=== PATIENT | male | born 1990 | race Caucasian/White ===

== ENCOUNTER → 2018-04-26 | Outpatient (REF) | payer OTHER ==
[2018-04-26 19:05] LABS: HEMATOCRIT 48.5 % (42.0-52.0); HEMOGLOBIN 16.5 g/dl (13.5-17.5); MEAN CORPUSCULAR HEMOGLOBIN 29.8 pg (27.0-33.0); MEAN CORPUSCULAR VOLUME 87.7 fl (80.0-96.0); PLATELET COUNT, AUTOMATED 239 10^3/uL (150-450); RED BLOOD COUNT 5.53 10^6/uL (4.30-6.10); WHITE BLOOD COUNT 5.3 10^3/uL (4.0-10.0)
[2018-04-26 19:26] LABS: ALBUMIN 4.4 GM/DL (3.2-5.2); ALT/SGPT 32 U/L (12-78); BILIRUBIN,TOTAL 0.5 MG/DL (0.2-1.0); BLOOD UREA NITROGEN 18 MG/DL (7-18); CALCIUM LEVEL 9.2 MG/DL (8.5-10.1); CARBON DIOXIDE LEVEL 32 MEQ/L (21-32); CHLORIDE LEVEL 103 MEQ/L (98-107); CREATININE FOR GFR 1.14 MG/DL (0.70-1.30); FREE T4 0.96 NG/DL (0.76-1.46); GLOMERULAR FILTRATION RATE > 60.0 (>60); GLUCOSE, FASTING 92 MG/DL (70-100); SODIUM LEVEL 141 MEQ/L (136-145); TOTAL PROTEIN 7.5 GM/DL (6.4-8.2)
== END ==
LOC: M SFHCPLAZ 13:49
PROVIDERS: ATTEND Physician Assistant
DX: Z00.00 Encounter for general adult medical examination without abnormal findings (principal)

== ENCOUNTER → 2018-04-27 | Outpatient (REF) | payer OTHER | LOC: M SFHCPLAZ 14:32 | PROVIDERS: ATTEND Family Medicine | DX: H53.2 Diplopia (principal) ==

== ENCOUNTER 2018-05-05 05:55 | Day surgery (SDC) | payer OTHER ==
[~2018-05-05] VITALS: Ht 180.3 cm; Wt 83.9 kg
[2018-05-05] MEDS ORDERED: LR 1,000 ML IV ONE (06:00)
[2018-05-05] MEDS ORDERED: ERYTHROMYCIN OPHTH OINT As Ordered ONE (06:52)
[2018-05-05] MEDS ORDERED: PHENYLEPHRINE 2.5% OPHTH SOL 2ML As Ordered ONE (06:52)
[2018-05-05] MEDS ORDERED: LIDOCAINE 3.5 % 1ML OPHTH TOPICAL GEL OU ONE (07:00)
[2018-05-05] MEDS ORDERED: PROPOFOL 200 MG/20 ML VIAL As Ordered ONE (07:09)
[2018-05-05] MEDS ORDERED: MIDAZOLAM INJ 2 MG/2 ML VIAL (J2250) As Ordered ONE (07:09)
[2018-05-05] MEDS ORDERED: LIDOCAINE 2% INJ 100 MG/5 ML SDV (FOR ANES.) As Ordered ONE (07:09)
[2018-05-05] MEDS ORDERED: fentaNYL 100 MCG/2 ML INJECTION (J3010) As Ordered ONE ×3 (07:09→09:41)
[2018-05-05] MEDS ORDERED: dexameTHASONE 4 MG/ML 1ML VIAL (J1100) As Ordered ONE (07:09)
[2018-05-05] MEDS ORDERED: ONDANSETRON 4MG/2ML VIAL (J2405) As Ordered ONE ×2 (07:09→09:41)
[2018-05-05] MEDS ORDERED: SCOPOLAMINE 1MG TRANSDERMAL PATCH As Ordered ONE (07:12)
[2018-05-05] MEDS ORDERED: SCOPOLAMINE 1MG TRANSDERMAL PATCH TOP ONE (07:15)
[2018-05-05] MEDS ORDERED: POVIDONE-IODINE 5% OPHTH PREP SOL 30ML As Ordered ONE (07:15)
[2018-05-05] MEDS ORDERED: MAXITROL OPHTH OINT 3.5 GM As Ordered ONE (08:35)
[2018-05-05] MEDS ORDERED: TRIMETHOBENZAMIDE 300 MG CAP PO PRN (09:30)
[2018-05-05] MEDS ORDERED: AcetaZOLAMIDE 500 MG ER CAP PO ONE (09:30)
[2018-05-05] MEDS ORDERED: ONDANSETRON 4MG/2ML VIAL (J2405) IV PRN (09:45)
[2018-05-05] MEDS: fentaNYL 100 MCG/2 ML INJECTION (J3010) IV PRN ×4 (09:45→10:00)
[2018-05-05] MEDS ORDERED: LR 1,000 ML IV SCH (09:45)
[2018-05-05] MEDS ORDERED: ACETAMINOPHEN 325 MG TAB PO PRN (10:00)
[2018-05-05] MEDS ORDERED: ACETAMINOPHEN TAB 650MG DOSE (2X325MG) PO PRN (10:00)
[2018-05-05] MEDS: PERCOCET 5MG/325MG TAB PO PRN ×2 (10:10→10:47)
[2018-05-05] MEDS ORDERED: PERCOCET 5MG/325MG TAB As Ordered ONE (10:46)
--- NOTE | 2018-05-09 08:44 | RO ---
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 SURGERY: Bilateral (both eyes) medial rectus recession 5.5 mm. SURGEON: Marvin Parker DO SENIOR SHIPPING CLERK: Rosita Mc (3rd year medical student) ANESTHESIA: General, laryngeal mask airway (LMA). INDICATION: Visually significant right esotropia 40 prism diopters. SPECIMENS: None. ESTIMATED BLOOD LOSS: Minimal. COMPLICATIONS: None. PROCEDURE IN DETAIL: After obtaining informed consent, the patient was taken to the operating room where a time-out was performed confirming we had the correct patient and operative site, which is both eyes. The patient was prepped and draped in a sterile fashion (both eyes). A lid speculum was introduced in the right eye. A fornix spaced incision was made inferonasally and the medial rectus was snared and the check ligaments and connective tissue were dissected with blunt and sharp dissection. The muscle was tied locking #5-0 Vicryl suture. The muscle disinserted from the eye. A 5.5 mm recession was performed. The conjunctiva was closed with several interrupted #6-0 plain sutures. The lid speculum was removed and an identical procedure was performed on the left eye. At the end of the case, the patient's eyes were straight and he was returned to the recovery area in excellent condition. He will followup in the office.
== END 2018-05-05 11:38 | disposition home or self-care (01) ==
LOC: M SDC 05:55 → EDUNIT# 07:30 → M SDC 11:38
PROVIDERS: ATTEND Ophthalmology
DX: H50.00 Unspecified esotropia (principal); H53.2 Diplopia
CPT/HCPCS: 67311; J1100; J2250; J2405; J3010

== ENCOUNTER → 2020-07-23 | Outpatient (REF) | payer BC ==
[2020-07-23 14:39] LABS: CHOLESTEROL RISK RATIO 4.47 (<5)
[2020-07-23 14:40] LABS: FREE T4 1.02 NG/DL (0.76-1.46); THYROID STIMULATING HORMONE 1.39 uIU/ML (0.358-3.740)
[2020-07-23 14:46] LABS: HEMOGLOBIN A1c 5.1 %
== END ==
LOC: M SFHCPLAZ 11:04
PROVIDERS: ATTEND Nurse Practitioner Family
DX: Z13.228 Encounter for screening for other metabolic disorders (principal); Z13.220 Encounter for screening for lipoid disorders